=== PATIENT | male | born 1955 | race Caucasian/White ===

== ENCOUNTER 2018-03-19 00:09 | Inpatient (IN) | payer BC ==
[2018-03-19 00:34] LABS: #Basophils 0.1 thou/uL (0.0-0.2); #Eosinphils 0.2 thou/uL (0.0-0.7); #Lymphocytes 4.1 thou/uL (1.20-3.40); #Monocytes 0.7 thou/uL (0.11-0.59); #Neutrophils 4.1 thou/uL (1.40-6.50); %Basophils 0.8 % (0.0-1.0); %Eosinophils 2.3 % (0.0-10.0); %Lymphocytes 45.1 % (21.0-51.0); %Monocytes 7.3 % (0.0-10.0); %Neutrophils 44.4 % (42.0-75.0); Hemoglobin 14.2 g/dL (14.0-18.0); Mean Corpuscular HGB CONC 33.8 g/dL (32.0-36.0); Mean Corpuscular Hemoglobin 29.5 pg (27.0-31.0); Mean Corpuscular Volume 87.3 fL (78.0-98.0); Mean Platelet Volume 6.8 fL (7.4-10.4); Platelet Count 226 thou/uL (130-400); RBC Distribution Width 12.2 % (11.5-14.5); Red Blood Cell (RBC) Count 4.82 mill/uL (4.70-6.10); White Blood Cell (WBC) Count 9.2 thou/uL (4.8-10.8)
[2018-03-19] MEDS ORDERED: Fentanyl 100 MCG/2 ML VIAL ONE (00:35)
[2018-03-19] MEDS ORDERED: Midazolam HCl 2 mg/2 ml Vial ONE (00:35)
[2018-03-19 00:43] LABS: PTT 29.6 SEC (22.9-36.1)
--- NOTE | 2018-03-19 00:48 | CON ---
DATE OF CONSULTATION: 03/19/2018 CHIEF COMPLAINT: Acute myocardial infarction. HISTORY OF PRESENT ILLNESS: Mr. Bejarano is a very pleasant 62-year-old gentleman with a past medical h istory of acid reflux and tobacco abuse, who recently presented with acute onset of chest pain. It o ccurred at 45 minutes to an hour prior to presentation. He presented [facility]. Accord ing to the physician at [place] [facility], he was continued to have chest pain and went into VT and required synchronized cardioversion. He was placed on IV amiodarone and transferred to [facility]. He is currently having chest pressure. PAST MEDICAL HISTORY: Acid reflux, tobacco abuse. ALLERGIES: None. MEDICATIONS: None. SOCIAL HISTORY: He is currently . Positive tobacco. Positive alcohol use. REVIEW OF SYSTEMS: A 10-point review of systems is reviewed and as above, otherwise negative. PHYSICAL EXAMINATION: VITAL SIGNS: Blood pressure 110/70, pulse 80, respirations 20. GENERAL: Patient is a pleasant male/female who is in no acute distress. The patient appears his/her stated age. NEUROLOGIC: The patient is alert and oriented times 3 with no focal neurologic deficits. HEENT: Sclerae without icterus. Mouth has moist mucous membranes with normal pallor. NECK: No JVD. Carotid upstroke brisk. No bruits bilaterally. LUNGS: Clear to auscultation with unlabored respirations. BACK: No scoliosis or kyphosis. CARDIAC: Regular rate and rhythm with normal S1 and S2. No S3 or S4 noted. No significant rubs, mu rmurs, thrills, or gallops noted throughout the precordium. PMI is not displaced. There is no brianna ternal heave. ABDOMEN: Soft, nontender, nondistended. No peritoneal signs present. No hepatosplenomegaly. No ab normal striae. EXTREMITIES: 2+ femoral and 2+ dorsalis pedis pulses. No cyanosis, clubbing, or edema. SKIN: No gross abnormalities. PERTINENT LABORATORY DATA: Pending. EKG shows normal sinus rhythm, ST segment elevation noted infer iorly. IMPRESSION: Acute myocardial infarction. RECOMMENDATIONS: At this point, I recommend urgent coronary angiography plus PCI. I discussed the p rocedure in full detail with the patient. The risks of the procedure were also discussed. The risks of the procedure include but are not limited to the following: , stroke, MD, need for emergenc y surgery, loss of limb, bleeding, and infection, as well as a reaction to the dye causing kidney maxx lure and needing long-term dialysis. I also discussed the risks of PCI to include all of the above i ncluding coronary dissection and perforation in addition to acute stent thrombosis and restenosis. A ll questions about the procedure were answered. Given the above, the patient agreed to proceed with coronary angiography and possible PCI. I did discuss this individually with Adriana Darci as well as . Both agreed to proceed with drug-co ated stent placement if needed. Further recommendation pending the above.
[2018-03-19 00:49] LABS: ALT (SGPT) 39 U/L (8-55); AST (SGOT) 51 U/L (5-34); Albumin 4.2 g/dL (3.4-4.8); Alkaline Phosphatase 37 U/L (40-150); Anion Gap 16 mmol/L (10-20); BUN (Urea Nitrogen) 13 mg/dL (8.4-25.7); Bilirubin, Total 0.5 mg/dL (0.2-1.2); Calc. Creatinine Clearance 0 mL/min (70-130); Carbon Dioxide 20 mmol/L (23-31); Chloride 107 mmol/L (98-107); Estimated GFR-MDRD 76; Globulin 2.7 g/dL (2.4-3.5); Glucose 134 mg/dL (80-115); Potassium 3.2 mmol/L (3.5-5.1); Protein, Total 6.9 g/dL (5.8-8.1); Sodium 140 mmol/L (136-145)
[2018-03-19 00:54] LABS: CKMB 3.7 ng/mL (0-6.6); Troponin I 0.019 ng/mL (< 0.028)
[2018-03-19] MEDS: Amiodarone HCl 450 MG, Admixture Fee 1 EACH in Dextrose 5% in Water 250 ML IVPB SCH ×2 (01:20→06:20)
[2018-03-19] MEDS ORDERED: Acetaminophen/Codeine 30-300mg Tablet PO PRN (01:29)
[2018-03-19] MEDS ORDERED: Morphine 2 MG/ML SYRINGE SLOW IVP PRN (01:29)
[2018-03-19] MEDS ORDERED: Mag-Al 1200 mg/1200 mg/30 ML UDCUP PO PRN (01:29)
[2018-03-19] MEDS ORDERED: traMADol HCl 50 MG TAB PO PRN (01:29)
[2018-03-19] MEDS ORDERED: Nitroglycerin 0.4 MG TAB (25 Tab Bottle) SL PRN (01:29)
[2018-03-19] MEDS ORDERED: Sodium Chloride 0.9% 1,000 ML IV SCH (01:30)
[2018-03-19 02:09] VITALS: BMI 25.4
[2018-03-19 03:03] LABS: CKMB 98.9 ng/mL (0-6.6)
[2018-03-19 03:08] LABS: Troponin I 15.882 ng/mL (< 0.028)
--- NOTE | 2018-03-19 04:29 | OP ---
The patient was brought urgently for coronary angiography. He was consented prior to the procedure. There was significant stenosis present in the LAD and circumflex artery. The culprit lesion appeare d to be the right coronary artery. He had complete occlusion of the RPL branch. There are multiple branches are present. The wire was initially placed and balloon passed. The wire was in a smaller o f the two vessels in the RPL. We decided to retract the wire (balloon was not inflated initially). The balloon would not track into the lower vessel. The loose wire would not track in either vessel. It was decided to proceed with a Whisper wire. There was a Whisper wire passed easily into the supe rior branch (smaller branch). A balloon was then performed successfully. It was decided to proceed with a second wire into the inferior branch with a Luge wire. After initial balloon inflations 2.25 x 24 mm Synergy stent was placed successfully. We will try to avoid the aneurysmal segment. T here was concern for a vessel mismatch. The stent appeared to be placed appropriately. There was TI OR 3 flow present at the end of the study. ST segments resolved.
[2018-03-19 08:56] LABS: CKMB 232.8 ng/mL (0-6.6)
[2018-03-19 09:11] LABS: Troponin I 62.626 ng/mL (< 0.028)
--- NOTE | 2018-03-19 09:31 | RAD ---
SINGLE VIEW OF THE CHEST: Comparison: None. History: Status post interventional cardiology. Cardiac arrhythmia. FINDINGS: Single view of the chest shows a normal sized cardiomediastinal silhouette. There is no evidence of c onsolidation, mass, or pleural effusion. The bones are unremarkable. IMPRESSION: No evidence of acute cardiopulmonary disease. POS: C
[2018-03-19] MEDS ORDERED: Iopamidol 370 76% 100 ML VIAL ONE (10:14)
[2018-03-19] MEDS ORDERED: Iopamidol 370 76% 50 ML VIAL FS ONE (10:14)
[2018-03-19] MEDS: TICAGRELOR 90 MG TABLET PO SCH ×2 (11:13→20:52)
[2018-03-19] MEDS: Potassium Chloride 20 MEQ TAB PO SCH ×2 (12:32→17:59)
--- NOTE | 2018-03-19 12:40 | CON ---
DATE OF CONSULTATION: 03/19/2018 SERVICE: Pulmonary Medicine REASON FOR CONSULTATION: ICU patient. HISTORY OF PRESENT ILLNESS: The patient is a very pleasant 62-year-old white male with past medical history significant for stable angina going on for 2 years. He then was leaving a movie. On leaving, he has had the same onset of chest discomfort and arm discomfort. It typically goes away with rest. He rested, but the pain continued to get worse. As such, he took some aspirin and was brought to the emergency department by family members were he was identified as having an ST elevation AR. He was transferred our way. He went for cardiac catheterization. During the procedure, the patient had a resolution in his chest discomfort, and bilateral arm discomfort as soon as the vessel was opened up. He then recovered in the ICU. Overnight, he has had multiple episodes of nonsustained ventricular tachycardia. Of note, he did develop a sustained V-tach in the previous emergency department. He required electrical defibrillation. PAST MEDICAL HISTORY: 1. Gastroesophageal reflux disease. 2. Tobacco abuse. 3. Coronary artery disease. PAST SURGICAL HISTORY: Percutaneous coronary intervention with stent placement x1. ALLERGIES: No known drug allergies. MEDICATIONS: A list of his inpatient medications were reviewed. No updates were made at this time. SOCIAL HISTORY: He is . He has a greater than [id number] history of smoking. He continues to smoke roughly half pack to a pack on a daily basis. He has occasional alcohol use. He denies any illicit drugs and has no exposure to chemicals, asbestos or tuberculosis. FAMILY HISTORY: Noncontributory. REVIEW OF SYSTEMS: General, head, ears, eyes, nose, throat, cardiovascular, respiratory, GI, , musculoskeletal, neurologic and skin is negative except as mentioned in the H&P. PHYSICAL EXAMINATION: VITAL SIGNS: Afebrile, pulse 70, blood pressure 129/83, respirations 13, saturation 100% on room air. GENERAL: The patient is awake, alert, in no apparent distress. LUNGS: Excellent air entry. There is no prolonged expiratory phase or wheezing appreciated. HEART: Normal rate, regular. ABDOMEN: Soft, nontender, nondistended. Bowel sounds are positive. MUSCULOSKELETAL: No cyanosis or clubbing. There is no pitting in the bilateral lower extremities. NEUROLOGIC: Grossly nonfocal. LABORATORY DATA: WBC 9.2, hemoglobin 14.2, platelets 226,000. INR 1.0. Troponin 62. Otherwise, basic metabolic profile is essentially unremarkable. Liver function studies are also unremarkable except for an AST minimally elevated at 51. IMAGING: Chest x-ray demonstrates no acute cardiopulmonary abnormality. ASSESSMENT: 1. ST elevation myocardial infarction, status post PCI with MAO to the right coronary artery. 2. Sustained ventricular tachycardia, status post cardioversion without need for chest compressions. 3. Obstructive sleep apnea, suspected. DISCUSSION AND PLAN: The patient will remain in the ICU until cleared for transition to the floor by Cardiology. He is currently on an amiodarone drip. Other supportive measures will be continued. I will replace the patient's potassium. Otherwise, I will make an attempt at mobilizing him through the day and push diet if he is okay with it. Ultimately, definitive therapy for his other severe coronary artery disease will likely be indicated. When the patient leaves the hospital in 4-6 weeks, we will bring him back to clinic and set him up for a polysomnogram. 70 minutes have been devoted to this patient in various activities. I personally reviewed all imaging studies and laboratory data noted within this document. For fifty percent of this time, I was interacting with the patient at the bedside or coordinating care with the care team. For the remainder of the time I was immediately available to the patient in the hospital unit. LANCE
--- NOTE | 2018-03-19 13:14 | EKG ---
Test Reason : POST STENT Blood Pressure : / mmHG Vent. Rate : 073 BPM Atrial Rate : 073 BPM P-R Int : 172 ms QRS Dur : 080 ms QT Int : 446 ms P-R-T Axes : 060 -03 042 degrees QTc Int : 491 ms Normal sinus rhythm Inferior infarct , age undetermined Abnormal ECG No previous ECGs available Confirmed by DR. Jackson QUINTANILLA MD ([id number]) on 03/19/2018 1:14:35 PM Referred By: RAEANN Confirmed By:DR. Jackson QUINTANILLA MD
[2018-03-19] MEDS: Atorvastatin Calcium 40 MG TAB PO SCH (20:52)
[2018-03-20 05:01] LABS: #Basophils 0.1 thou/uL (0.0-0.2); #Eosinphils 0.1 thou/uL (0.0-0.7); #Lymphocytes 2.1 thou/uL (1.20-3.40); #Monocytes 0.6 thou/uL (0.11-0.59); #Neutrophils 5.1 thou/uL (1.40-6.50); %Basophils 0.7 % (0.0-1.0); %Eosinophils 1.7 % (0.0-10.0); %Lymphocytes 26.5 % (21.0-51.0); %Monocytes 7.2 % (0.0-10.0); Hemoglobin 14.2 g/dL (14.0-18.0); Mean Corpuscular HGB CONC 33.6 g/dL (32.0-36.0); Mean Corpuscular Hemoglobin 29.2 pg (27.0-31.0); Mean Corpuscular Volume 86.8 fL (78.0-98.0); Platelet Count 205 thou/uL (130-400); RBC Distribution Width 12.3 % (11.5-14.5); Red Blood Cell (RBC) Count 4.88 mill/uL (4.70-6.10); White Blood Cell (WBC) Count 7.9 thou/uL (4.8-10.8)
[2018-03-20 05:20] LABS: ALT (SGPT) 54 U/L (8-55); AST (SGOT) 138 U/L (5-34); Albumin 3.7 g/dL (3.4-4.8); Alkaline Phosphatase 36 U/L (40-150); Anion Gap 12 mmol/L (10-20); BUN (Urea Nitrogen) 12 mg/dL (8.4-25.7); Bilirubin, Total 0.9 mg/dL (0.2-1.2); Calc. Creatinine Clearance 100 mL/min (70-130); Calcium 8.7 mg/dL (7.8-10.44); Carbon Dioxide 19 mmol/L (23-31); Cardiac Risk 6.9 (Less than 4.5); Chloride 109 mmol/L (98-107); Cholesterol 193 mg/dl (< 200 Desired); Estimated GFR-MDRD 87; Globulin 2.7 g/dL (2.4-3.5); Glucose 111 mg/dL (80-115); HDL Cholesterol 28 mg/dL (>60 Neg Risk); LDL Cholesterol, Calculated 123 mg/dL; Magnesium 2.4 mg/dL (1.6-2.6); Phosphorus 3.3 mg/dL (2.3-4.7); Potassium 4.3 mmol/L (3.5-5.1); Protein, Total 6.4 g/dL (5.8-8.1); Sodium 136 mmol/L (136-145); Triglycerides 209 mg/dL (Less than 150)
[2018-03-20] MEDS: Losartan 25 MG TAB PO SCH (09:35)
[2018-03-20] MEDS: TICAGRELOR 90 MG TABLET PO SCH ×2 (09:36→20:16)
--- NOTE | 2018-03-20 12:26 | PRG ---
DATE OF SERVICE: 03/20/2018 SERVICE: Pulmonary Medicine. INTERVAL HISTORY: The patient is doing really well from a respiratory standpoint. He is breathing comfortably. Denies any current chest pain, nausea, vomiting, fevers, or chills. He had not had any significant tachyarrhythmias. Otherwise , he really feels like he is back to normal. PHYSICAL EXAMINATION: VITAL SIGNS: Afebrile, pulse 83, blood pressure 125/80, respirations 20, saturation 98% on room air. GENERAL: The patient is awake and alert, in no apparent distress. LUNGS: Excellent air entry. There is no prolonged expiratory phase, wheezing, rhonchi, or crackles. HEART: Normal rate. Regular. ABDOMEN: Soft, nontender, nondistended. Bowel sounds are positive. MUSCULOSKELETAL: No cyanosis or clubbing. There is no pitting in the bilateral lower extremities. NEUROLOGIC: Grossly nonfocal. LABORATORY DATA: CBC is completely unremarkable. AST is gently uptrending, ALT is also gently uptrending. Liver function study and basic metabolic profile are otherwise unremarkable. Anion gap is downtrending. ASSESSMENT: 1. ST-elevation myocardial infarction, status post percutaneous coronary intervention with drug-eluting stent to the right coronary artery. 2. Sustained ventricular tachycardia without recurrence since percutaneous coronary intervention. 3. Obstructive sleep apnea, suspected. DISCUSSION AND PLAN: The patient could be transitioned out of the ICU to the telemetry unit. Pulmonary/Critical Care will continue to follow along while the patient remains in this location. When he arrives on the floor, I will sign off. We will have him return to clinic in 4 to 6 weeks in the outpatient setting to investigate his sleep apnea. Job ID: [id number] [facility]
--- NOTE | 2018-03-20 13:37 | PDOC.CTH ---
Cardiology Progress Note - Subjective Doing well. NO complaints. 5 B NSVT, slow present within 24 hours of [place] - Objective Vital Signs Temp Pulse Ox 03/20/18 08:00 100 03/20/18 07:00 98.0 F 03/20/18 04:00 97.8 F Weight 182 lb 1.629 oz 03/19/18 03/20/18 03/21/18 06:59 06:59 06:59 Intake Total 382 1710 340 Output Total 350 3050 0 Balance 32 -1340 340 - Physical Examination General/Neuro: alert & oriented x3, NAD Neck: carotid US brisk, no JVD present Lungs: CTA, unlabored respirations Heart: PMI normal, RRR Abdomen: no HSM, NT/ND, soft Extremities: + femoral B - Labs Result Diagrams: 03/20/18 04:35 03/20/18 04:35 Troponin/CKMB CK-MB (CK-2) 232.8 ng/mL (0-6.6) H* 03/19/18 08:15 Troponin I 62.626 ng/mL (< 0.028) H* 03/19/18 08:15 - Assessment/Plan AMI, inferior Severe CAD HTN Add coreg on ASA, brillinta and losartan Discussed proceeding with intervention to the circ and LAD. Concerned about jailing a diagonal branch. Given stable lesions and no symptoms prior to event , pt has opted for medical therapy and discuss intervention as outpatient. Likely home in am if no changes overnight.
--- NOTE | 2018-03-20 20:09 | EKG ---
Test Reason : Blood Pressure : / mmHG Vent. Rate : 079 BPM Atrial Rate : 079 BPM P-R Int : 180 ms QRS Dur : 080 ms QT Int : 406 ms P-R-T Axes : 064 -05 009 degrees QTc Int : 465 ms Normal sinus rhythm Inferior infarct (cited on or before 19-MAR-2018) Abnormal ECG When compared with ECG of 19-MAR-2018 07:19, Nonspecific T wave abnormality now evident in Lateral leads Confirmed by DWIGHT LI, SAdriana ([id number]) on 03/20/2018 8:08:47 PM Referred By: RAEANN Confirmed By:DR. Jackson QUINTANILLA MD
[2018-03-20] MEDS: Atorvastatin Calcium 40 MG TAB PO SCH (20:16)
[2018-03-20] MEDS: Carvedilol 6.25 MG TAB PO SCH (20:16)
[2018-03-21] MEDS ORDERED: Losartan 25 MG TAB PO SCH (09:00)
[2018-03-21] MEDS: Carvedilol 6.25 MG TAB PO SCH (10:26)
[2018-03-21] MEDS: TICAGRELOR 90 MG TABLET PO SCH (10:30)
[2018-03-21] MEDS: Losartan 25 MG TAB PO SCH (10:40)
[2018-03-21 11:28] LABS: CKMB 7.5 ng/mL (0-6.6); Critical Call CKMB RESULT DECREASING; Critical Call Chem Troponin I RESULT DECREASING; Troponin I 13.687 ng/mL (< 0.028)
--- NOTE | 2018-03-21 13:19 | PDOC.CTH ---
Cardiology Progress Note - Subjective No complaints today. BP dropped to the 80s systolic overnight. Asymptomatic. - Objective Vital Signs Temp BP 03/21/18 10:26 113/81 03/21/18 04:00 98.4 F Weight 182 lb 1.629 oz 03/20/18 03/21/18 03/22/18 06:59 06:59 06:59 Intake Total 1710 1870 Output Total 3050 1950 Balance -1340 -80 - Physical Examination General/Neuro: alert & oriented x3 Neck: carotid US brisk Lungs: CTA Heart: RRR Abdomen: NT/ND Extremities: other: (no edema) - Telemetry Telemetry Rhythm: SR - Labs Result Diagrams: 03/20/18 04:35 03/20/18 04:35 Troponin/CKMB CK-MB (CK-2) 7.5 ng/mL (0-6.6) H* 03/21/18 10:34 Troponin I 13.687 ng/mL (< 0.028) H* 03/21/18 10:34 - Assessment/Plan 1. s/p acute inferior NE 2. CAD s/p PCI-PDA 3. NSVT 4. Hypotension Transfer to tele. Continue monitoring BP. Probable discharge in AM.
[2018-03-22 08:04] VITALS: BP 106/65; TEMP 98.5
[2018-03-22] MEDS ORDERED: TICAGRELOR 90 MG TABLET PO SCH (09:00)
[2018-03-22] MEDS ORDERED: Losartan 25 MG TAB PO SCH (09:00)
--- NOTE | 2018-03-22 10:35 | PRG ---
DATE OF SERVICE: 03/21/2018 SERVICE: Pulmonary Medicine. INTERVAL HISTORY: The patient is doing absolutely outstanding from respiratory standpoint. He denies any chest discomfort or arm discomfort. I had a chance to talk to him today. Apparently, he has fairly significant snoring. His partner witnessed him holding his breath while sleeping. He has daytime sleepiness. His [place] sleepiness index is actually 12. He occasionally wakes up with a morning headache and frequently gets up in night in order to urinate. He has been told that he needs to have sleep apnea investigated. After telling him that this could contribute to heart disease, brain disease, and kidney disease, he is interested in pursuing a diagnostic polysomnogram. Otherwise, there has been no interval change to his condition. He is really doing quite well and has no discomforts. OBJECTIVE: VITAL SIGNS: Afebrile. Pulse 70, blood pressure 98/68, respirations 14, and saturation 100% on room air. GENERAL: The patient is awake and alert, in no apparent distress. LUNGS: Excellent air entry. There is no prolonged expiratory phase or wheezing present. HEART: Normal rate and regular. ABDOMEN: Soft, nontender, and nondistended. Bowel sounds are positive. MUSCULOSKELETAL: No cyanosis or clubbing. There is no pitting in the bilateral lower extremities. NEUROLOGIC: Nonfocal. LABORATORY DATA: Troponin 13.68 and beautifully downtrending. IMAGING: Echocardiogram demonstrates preserved ejection fraction with 1/3 diastolic dysfunction. ASSESSMENT: 1. ST-elevation myocardial infarction, status post percutaneous coronary intervention to the right coronary artery. 2. Sustained ventricular tachycardia without recurrence since stent placement. 3. Obstructive sleep apnea, suspected. 4. Chronic diastolic heart failure with preserved ejection fraction following myocardial infarction. DISCUSSION AND PLAN: At this point, the patient has no further requirements for inpatient pulmonary critical care opinion, so I will sign off. I will arrange for him to have an outpatient polysomnogram, and I have him return to the clinic after this can be performed, so we can get him initiated on therapy if appropriate. Please call with any additional questions or concerns moving forward, but from purely respiratory standpoint, he is stable for transition out of the hospital. Job ID: [id number]
[2018-03-22] MEDS ORDERED: Carvedilol 3.125 MG TAB PO SCH (17:00)
--- NOTE | 2018-03-23 19:32 | EKG ---
Test Reason : CHEST PAIN Blood Pressure : / mmHG Vent. Rate : 091 BPM Atrial Rate : 091 BPM P-R Int : 174 ms QRS Dur : 100 ms QT Int : 396 ms P-R-T Axes : 050 040 067 degrees QTc Int : 487 ms Sinus rhythm with Fusion complexes Possible Left atrial enlargement ST elevation consider inferolateral injury or acute infarct Prolonged QT * ACUTE OR * Inferior STEMI Consider right ventricular involvement in acute inferior infarct Abnormal ECG Confirmed by FLORY GONZALEZ DO ([id number]), commissioning editor WARREN EPSTEIN ([id number]) on 03/23/2018 7:31:51 PM Referred By: Confirmed By:FLORY GONZALEZ DO
== END 2018-03-22 10:06 | disposition home or self-care (01) | DRG 247 ==
LOC: ERS 00:09 → SDC 00:34 → CCU 00:36 → 2SE 03-21 18:22
PROVIDERS: ADMIT Internal Medicine Cardiovascular Disease; ATTEND Internal Medicine Cardiovascular Disease
PROC: 027034Z Dilation of Coronary Artery, One Artery with Drug-eluting Intraluminal Device, Percutaneous Approach (ICD-10-PCS; principal; 2018-03-19)
PROC: 4A023N7 Measurement of Cardiac Sampling and Pressure, Left Heart, Percutaneous Approach (ICD-10-PCS; 2018-03-19)
PROC: B2111ZZ Fluoroscopy of Multiple Coronary Arteries using Low Osmolar Contrast (ICD-10-PCS; 2018-03-19)
PROC: B2151ZZ Fluoroscopy of Left Heart using Low Osmolar Contrast (ICD-10-PCS; 2018-03-19)
DX: I21.3 ST elevation (STEMI) myocardial infarction of unspecified site (principal); I47.1 Supraventricular tachycardia; I50.32 Chronic diastolic (congestive) heart failure; G47.33 Obstructive sleep apnea (adult) (pediatric); I25.10 Atherosclerotic heart disease of native coronary artery without angina pectoris; I11.0 Hypertensive heart disease with heart failure; K21.9 Gastro-esophageal reflux disease without esophagitis; F17.210 Nicotine dependence, cigarettes, uncomplicated; Z79.899 Other long term (current) drug therapy
CPT/HCPCS: 36415; 71045; 76942; 80053; 80061; 82553; 83735; 84100; 84484; 85025; 85347; 85610; 85730; 92941; 93005; 93010; 93306; 93458; 93798; 99152; 99153; 99285; C1725; C1769; C1874; C9606; J0282; J2250; J3010; J7070

== ENCOUNTER 2018-06-11 20:30 | Outpatient (CLI) | payer BC | END 2018-06-11 20:31 | disposition home or self-care (01) | LOC: SLEEPLAB 20:30 | PROVIDERS: ATTEND Internal Medicine | DX: G47.33 Obstructive sleep apnea (adult) (pediatric) (principal); I10 Essential (primary) hypertension; I21.9 Acute myocardial infarction, unspecified; R35.1 Nocturia | CPT/HCPCS: 95810 ==

== ENCOUNTER 2018-08-26 23:40 | Observation (INO) | payer BC ==
[2018-08-27 00:01] LABS: #Eosinphils 0.2 thou/uL (0.0-0.7); #Lymphocytes 3.9 thou/uL (1.20-3.40); #Monocytes 0.8 thou/uL (0.11-0.59); %Basophils 0.2 % (0.0-1.0); %Eosinophils 2.3 % (0.0-10.0); %Lymphocytes 44.2 % (21.0-51.0); %Monocytes 8.7 % (0.0-10.0); %Neutrophils 44.6 % (42.0-75.0); Hemoglobin 13.5 g/dL (14.0-18.0); Mean Corpuscular HGB CONC 32.7 g/dL (32.0-36.0); Mean Corpuscular Hemoglobin 28.9 pg (27.0-31.0); Mean Corpuscular Volume 88.2 fL (78.0-98.0); Mean Platelet Volume 7.2 fL (7.4-10.4); Platelet Count 263 thou/uL (130-400); RBC Distribution Width 12.6 % (11.5-14.5); Red Blood Cell (RBC) Count 4.68 mill/uL (4.70-6.10); White Blood Cell (WBC) Count 8.9 thou/uL (4.8-10.8)
[2018-08-27] MEDS ORDERED: Nitroglycerin 2% Ointment 1 INCH/1 GM Packet ONE (00:22)
[2018-08-27] MEDS ORDERED: Aspirin Chewable 81 MG TAB ONE (00:22)
[2018-08-27] MEDS ORDERED: Labetalol HCl 100 MG/20 ML VIAL ONE (00:22)
[2018-08-27] MEDS ORDERED: Magnesium 2 GM/50 ML BAG (IN WATER) ONE (00:22)
[2018-08-27 00:24] LABS: ALT (SGPT) 22 U/L (8-55); AST (SGOT) 27 U/L (5-34); Albumin 4.9 g/dL (3.4-4.8); Alkaline Phosphatase 46 U/L (40-150); Anion Gap 17 mmol/L (10-20); BUN (Urea Nitrogen) 11 mg/dL (8.4-25.7); Bilirubin, Total 0.5 mg/dL (0.2-1.2); Calc. Creatinine Clearance 0 mL/min (70-130); Calcium 10.1 mg/dL (7.8-10.44); Carbon Dioxide 22 mmol/L (23-31); Chloride 105 mmol/L (98-107); Estimated GFR-MDRD 70; Globulin 2.9 g/dL (2.4-3.5); Glucose 98 mg/dL (80-115); Potassium 3.9 mmol/L (3.5-5.1); Protein, Total 7.8 g/dL (5.8-8.1); Sodium 140 mmol/L (136-145)
[2018-08-27 01:19] LABS: Bilirubin Negative (Negative); Blood, Urine Negative (Negative); Clarity CLEAR (Clear); Glucose, Urine (Dipstick) Negative (Negative); Leukocyte Negative (Negative); Nitrite Negative (Negative); Protein, Urine (Dipstick) Negative (Neg-Trace); Specific Gravity, Urine 1.006 (1.002-1.036); Urobilinogen 0.2 mg/dL (0.2-1.0)
--- NOTE | 2018-08-27 02:53 | HP ---
PRIMARY CARE PROVIDER: Bryn Weiss MD CHIEF COMPLAINT: Chest pain. HISTORY OF PRESENT ILLNESS: Mr. Bejarano is a pleasant 63-year-old gentleman, who was seen at [facility] on August 27, 2018. On March 19, 2018, he had cardiac catheterization at which time he was found to have severe multivessel disease. He had successful stent placement to RPL with a drug-eluting stent. Staged procedure to the LAD, circumflex artery. He reports that he was doing well until 11:00 p.m. yesterday. At that time, he noticed pain in the right side of his neck. He describes it as "sore muscle and type", 3/10 to 4/10, no known aggravating or relieving factors. He initially came to the emergency room because of neck pain. While in the emergency room, the neck pain radiated to the right side of his chest. When I saw him, he reported that the pain has resolved. He denies any shortness of breath, diaphoresis, lightheadedness, nausea, or vomiting. REVIEW OF SYSTEMS: All other systems reviewed and found to be negative. PAST MEDICAL HISTORY: Gastroesophageal reflux disease and coronary artery disease. PAST SURGICAL HISTORY: Right shoulder surgery and PCI with stent. SOCIAL HISTORY: The patient drinks 2 beers every night. He denies recreational drug use or tobacco use. FAMILY HISTORY: Congestive heart failure in his mother. ALLERGIES: NO KNOWN DRUG ALLERGIES. CURRENT MEDICATIONS: 1. Aspirin 81 mg daily. 2. [place]-3 one tablet 2 times a day. 3. Vitamin D3 of 1000 units 2 times a day. 4. FiberCon 625 mg two times a day. 5. Flonase 2 sprays intranasally daily. 6. Ranitidine 300 mg daily. 7. Atorvastatin 40 mg daily. 8. Plavix 75 mg daily. 9. Coreg 3.125 mg 2 times a day. PHYSICAL EXAMINATION: GENERAL: On examination, Mr. Bejarano is awake and alert, not in acute distress. VITAL SIGNS: Blood pressure is 108/63, pulse 71, respiratory rate 15, and oxygen saturation 96% on room air. He is afebrile. EYES: No scleral icterus. No conjunctival pallor. ENT: Moist mucosal membranes. No oropharyngeal erythema or exudates. NECK: Supple, nontender, trachea is midline. RESPIRATORY: Accessory muscles of breathing are not active. Chest wall movements are symmetric bilaterally. LUNGS: Clear to auscultation without wheeze, rhonchi, or crepitations. CARDIOVASCULAR: S1 and S2 are heard, regular. Peripheral pulses palpable. No carotid bruit. No pericardial rub. ABDOMEN: Soft, nontender. Bowel sounds heard. No hepatomegaly. No splenomegaly. NEUROLOGIC: Cranial nerves 2 through 12 intact, deep tendon reflexes 2+. MUSCULOSKELETAL: Power is 5/5 in all 4 extremities. SKIN: No rashes or subcutaneous nodules. LYMPHATIC: No cervical lymphadenopathy. PSYCHIATRIC: Normal mood, normal affect. The patient is oriented to person, place, and time. LABORATORY DATA: Mr. Bejarano's labs and investigations were reviewed. I reviewed his electrocardiogram, which shows normal sinus rhythm. No ST changes to suggest an acute coronary syndrome. I reviewed his chest x-ray, which does not show any pulmonary infiltrates. White count, normocytic anemia with hemoglobin 13.5, normal platelet count, unremarkable comprehensive metabolic profile and normal first troponin I. Urinalysis is negative. ASSESSMENT AND PLAN: Mr. Bejarano is a pleasant 63-year-old gentleman, who was seen at [facility] on August 27, 2018. His problem list includes: 1. Chest pain: Mr. Bejarano is presenting with chest pain, which is very atypical for cardiac etiology. However, given his cardiac history, he will be admitted to the hospital on observation status for telemetry monitoring and to recheck his troponin. Cardiology Service has been consulted by emergency room physician for opinion and help with management. We will continue aspirin and Plavix while he is in the hospital. 2. Hypertension: Continue his antihypertensives, monitor vital signs and titrate antihypertensives as needed. 3. Gastroesophageal reflux disease: Appears to be stable, continue ranitidine. 4. Dyslipidemia: Continue atorvastatin. Many thanks for allowing me to participate in your patient's care. Please feel free to contact me with any questions or concerns. LEVEL OF RISK: High. LEVEL OF COMPLEXITY: High. Job ID: [id number]
[2018-08-27 02:56] VITALS: BMI 27.1
[2018-08-27 03:44] LABS: Troponin I 0.013 ng/mL (< 0.028)
[2018-08-27 06:45] LABS: Troponin I 0.019 ng/mL (< 0.028)
[2018-08-27] MEDS ORDERED: Labetalol HCl 100 MG/20 ML VIAL SLOW IVP PRN (07:16)
--- NOTE | 2018-08-27 08:14 | RAD ---
PORTABLE CHEST: History: Chest pain. Comparison: 03-19-18 FINDINGS: Heart size and mediastinum within normal limits. The lungs are clear of infiltrates. No significant b mouna findings. IMPRESSION: No active intrathoracic disease. POS: [facility]
[2018-08-27] MEDS ORDERED: Clopidogrel Bisulfate 75 MG TAB PO SCH (16:00)
[2018-08-27] MEDS ORDERED: Losartan 25 MG TAB PO SCH (16:00)
[2018-08-27 16:20] VITALS: BP 156/72; TEMP 97.4
[2018-08-27] MEDS ORDERED: Carvedilol 3.125 MG TAB PO SCH (17:00)
--- NOTE | 2018-08-27 18:05 | CON ---
DATE OF CONSULTATION: 08/27/2018 REASON FOR CONSULTATION: Atypical chest pain and hypertensive urgency. HISTORY OF PRESENT ILLNESS: Mr. Bejarano is a very pleasant 63-year-old gentleman, who was seen and evaluated in the past. He presented with acute MA in February. He had complete occlusion of an RPL branch. He had severe stenosis of the circumflex artery and LAD. After discussing risks and benefits of proceeding with stent placement, decided to opt with medical therapy. Most recently, he states he had a very laborious job. He then developed neck discomfort. He states he had associated blood pressure 180/110. This is unusual for him. He proceeded to the emergency room with the above. The pain was much different than his previous symptoms. PAST MEDICAL HISTORY: As above. HOME MEDICATIONS: Include, 1. Flonase. 2. FiberCon. 3. Plavix. 4. [place]-3 fatty acids. 5. Vitamin D3. 6. Coreg. 7. Lipitor. 8. Aspirin. 9. Cozaar. PHYSICAL EXAMINATION: GENERAL: Patient is a pleasant male, who is in no acute distress. The patient appears their stated age. VITAL SIGNS: Blood pressure 156/72, pulse 65, temperature 97.4. NEUROLOGIC: The patient is alert and oriented x3 with no focal neurologic deficits. HEENT: Sclerae without icterus. Mouth has moist mucous membranes with normal pallor. NECK: No JVD. Carotid upstroke brisk. No bruits bilaterally. LUNGS: Clear to auscultation with unlabored respirations. BACK: No scoliosis or kyphosis. CARDIAC: Regular rate and rhythm with normal S1 and S2. No S3 or S4 noted. No significant rubs, murmurs, thrills, or gallops noted throughout the precordium. PMI is not displaced. There is no parasternal heave. ABDOMEN: Soft, nontender, nondistended. No peritoneal signs present. No hepatosplenomegaly. No abnormal striae. EXTREMITIES: 2+ femoral and 2+ dorsalis pedis pulses. No cyanosis, clubbing, or edema. SKIN: No gross abnormalities. PERTINENT LABORATORY DATA: CK-troponin negative. IMPRESSION: 1. Hypertensive urgency. 2. Atypical chest pain. RECOMMENDATIONS: I discussed proceeding with coronary angiography with Mr. Bejarano. I also discussed proceeding with medical therapy. I discussed risks and benefits of both options. He has opted with medical therapy. He is not interested in proceeding with a stent placement. We will then be aggressive with continued blood pressure management. I would recommend he carry increasing carvedilol at 6.25 b.i.d. in addition to increased losartan 50 mg q.a.m. Plan is to follow Mr. Bejarano in the next 1 to 2 weeks. Job ID: [id number]
[2018-08-27] MEDS ORDERED: Atorvastatin Calcium 40 MG TAB PO SCH (21:00)
--- NOTE | 2018-08-28 05:15 | SS ---
DATE OF ADMISSION: 08/27/2018 DATE OF DISCHARGE: 08/27/2018 PRIMARY CARE PHYSICIAN: Dr. Weiss. CONSULTANTS: Dr. Velasquez. DISCHARGE DIAGNOSES: 1. Chest pain, atypical chest pain. 2. Hypertension. 3. Gastroesophageal reflux disease. 4. Dyslipidemia. HOSPITAL COURSE: Mr. Bejarano is a 63-year-old male, who presented to the emergency room with complaints of high chest pain, anterior neck pain, and hypertension. The patient reports he had a stent placed 3 months ago. 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 He denied any dizziness, lightheadedness. He is taking Plavix and aspirin after his stent was placed. Due to his recent cardiac history, the patient was admitted to the observation unit for further management and cardiac consultation. Dr. Velasquez was consulted and saw the patient, and stated that he could go home from a cardiac standpoint as long as his blood pressure was controlled. The last blood pressure checked while the patient was updated on cardiology plan was 157/60. The patient has not had his morning blood pressure medications. The patient planned to discharge home with followup with primary care and Cardiology. REVIEW OF SYSTEMS: The patient was examined prior to discharge. He denied any chest pain, shortness of breath, palpitations. Does have a history of anxiety, but believes that it is currently under control. All other systems are negative unless mentioned in the hospital course. PHYSICAL EXAMINATION: VITAL SIGNS: Temperature is 97.4, pulse is 65, respirations 18, PO2 sats 97% on room air, and blood pressure 156/72. CONSTITUTIONAL: The patient appears nontoxic, is in no apparent distress. HEENT: Head, atraumatic and normocephalic. Eyes, pupils are equally round and reactive to light. Extraocular muscles are intact. ENT, mucous membranes are moist. Mouth exam is normal. NECK: Normal range of motion. Trachea is midline. Some mild tenderness in the left anterior neck. RESPIRATORY/CHEST: Breath sounds are clear. Chest movement is symmetrical. CARDIOVASCULAR: Normal heart rate and rhythm. Heart sounds are normal. ABDOMEN: Nontender. Bowel sounds are heard. BACK: Normal inspection. Normal range of motion. EXTREMITIES: Upper extremities, normal inspection and normal range of motion. Radial pulses are normal. Lower extremities, normal inspection and normal range of motion. Pedal pulses normal. NEURO: The patient is oriented to person, place, and time. Speech is normal. SKIN: Warm and dry. Normal in color. PSYCH: The patient has a normal affect. ALLERGIES: NONE. DISCHARGE MEDICATIONS: The patient's home medications were restarted on discharge: 1. Fibercon 625 mg p.o. b.i.d. 2. Vitamin D3 of 1000 mg p.o. b.i.d. 3. Plavix 75 mg p.o. daily. 4. Flonase 50 mcg each naris daily. 5. Losartan 25 mg p.o. daily. 6. [place] fish oil 1 capsule p.o. b.i.d. 7. Ranitidine 300 mg p.o. daily. 8. Aspirin 81 mg p.o. daily. 9. Lipitor 40 mg p.o. at bedtime. 10. Coreg 3.125 mg p.o. b.i.d. CONDITION: The patient's condition is stable. DISPOSITION: The patient will be discharged home. DISCHARGE INSTRUCTIONS: The patient is instructed to follow up with Dr. Weiss within the next week, follow up with Dr. Velasquez in the next 2 to 3 weeks. Job ID: [id number]
[2018-08-28] MEDS ORDERED: Aspirin Chewable 81 MG TAB PO SCH (09:00)
[2018-08-28] MEDS ORDERED: Losartan 25 MG TAB PO SCH (09:00)
== END 2018-08-27 17:03 | disposition home or self-care (01) ==
LOC: ERS 23:40 → ERHOLD 08-27 01:19 → 2SW 08-27 12:55
PROVIDERS: ADMIT Internal Medicine; ATTEND Internal Medicine
DX: R07.89 Other chest pain (principal); I16.0 Hypertensive urgency; I25.10 Atherosclerotic heart disease of native coronary artery without angina pectoris; I10 Essential (primary) hypertension; K21.9 Gastro-esophageal reflux disease without esophagitis; E78.5 Hyperlipidemia, unspecified; Z95.5 Presence of coronary angioplasty implant and graft; Z79.02 Long term (current) use of antithrombotics/antiplatelets; Z79.82 Long term (current) use of aspirin; Z79.899 Other long term (current) drug therapy
CPT/HCPCS: 36415; 71045; 80053; 81003; 83880; 84484; 85025; 93005; 96365; 96375; 99406; G0378; J3475

== ENCOUNTER 2018-10-22 20:30 | Outpatient (CLI) | payer BC | END 2018-10-22 20:31 | disposition home or self-care (01) | LOC: SLEEPLAB 20:30 | PROVIDERS: ATTEND Internal Medicine | DX: G47.33 Obstructive sleep apnea (adult) (pediatric) (principal); G47.31 Primary central sleep apnea | CPT/HCPCS: 95811 ==

== ENCOUNTER 2019-02-14 15:39 | Outpatient (CLI) | payer BC ==
--- NOTE | 2019-02-14 17:01 | MRI ---
MR OF THE LEFT SHOULDER WITHOUT CONTRAST: 02/14/19 INDICATION: Nontraumatic tear of the left rotator cuff. FINDINGS: There is a full thickness tear involving the anterior to posterior supraspinatus extending up to the conjoined tendon measuring 1 x 1.4 cm in the mediolateral and AP dimensions respectively. There is m ild tendinosis of the supraspinatus and infraspinatus. There is intertendinous delamination into the anterior infraspinatus tendon from the full thickness supraspinatus tear that extends to the musculot endinous junction. There is moderate tendinosis of the subscapularis. There is moderate tendinosis of the proximal long head of the biceps tendon. There is a split thickness tear of the long head of the biceps tendon. Biceps anchor complex appears intact. Anterior inferior glenohumeral labral ligamento us complex appears intact. There is mild AC joint osteoarthrosis. No muscular atrophy is evident. Sma ll suspected intra-articular body is seen within the biceps tendon sheath measuring approximately 4 m m. IMPRESSION: 1. Complete tear of the supraspinatus. Small partial thickness delaminating tear extending from the full thickness tear of the supraspinatus into the conjoined tendon and into the anterior aspect o f the infraspinatus tendon, back to the musculotendinous junction. 2. Partial thickness split tear of the intra-articular biceps tendon. 3. Intra-articular body within the biceps tendon sheath. 4. Mild AC joint osteoarthrosis. POS: OFF
== END 2019-02-14 15:40 | disposition home or self-care (01) ==
LOC: BICMRI 15:39
PROVIDERS: ATTEND Orthopaedic Surgery
DX: M75.122 Complete rotator cuff tear or rupture of left shoulder, not specified as traumatic (principal); M19.012 Primary osteoarthritis, left shoulder

== ENCOUNTER 2019-03-27 06:28 | Outpatient (CLI) | payer BC ==
[2019-03-27 14:10] LABS: #Eosinphils 0.3 thou/uL (0.0-0.7); #Monocytes 0.7 thou/uL (0.11-0.59); #Neutrophils 4.2 thou/uL (1.40-6.50); %Basophils 0.1 % (0.0-1.0); %Eosinophils 3.2 % (0.0-10.0); %Lymphocytes 36.5 % (21.0-51.0); %Monocytes 8.7 % (0.0-10.0); %Neutrophils 51.5 % (42.0-75.0); Hemoglobin 13.9 g/dL (14.0-18.0); Mean Corpuscular Hemoglobin 28.4 pg (27.0-31.0); Mean Corpuscular Volume 88.9 fL (78.0-98.0); Mean Platelet Volume 7.1 fL (7.4-10.4); Platelet Count 235 thou/uL (130-400); RBC Distribution Width 11.8 % (11.5-14.5); Red Blood Cell (RBC) Count 4.89 mill/uL (4.70-6.10); White Blood Cell (WBC) Count 8.1 thou/uL (4.8-10.8)
[2019-03-27 14:35] LABS: Anion Gap 13 mmol/L (10-20); BUN (Urea Nitrogen) 10 mg/dL (8.4-25.7); Calc. Creatinine Clearance 0 mL/min (70-130); Calcium 9.7 mg/dL (7.8-10.44); Carbon Dioxide 24 mmol/L (23-31); Chloride 109 mmol/L (98-107); Estimated GFR-MDRD 69; Glucose 115 mg/dL (80-115); Sodium 141 mmol/L (136-145)
--- NOTE | 2019-03-28 17:57 | EKG ---
Test Reason : Blood Pressure : / mmHG Vent. Rate : 059 BPM Atrial Rate : 059 BPM P-R Int : 184 ms QRS Dur : 084 ms QT Int : 428 ms P-R-T Axes : 062 020 043 degrees QTc Int : 423 ms Sinus bradycardia Low voltage QRS Cannot rule out Anterior infarct , age undetermined Abnormal ECG When compared with ECG of 26-AUG-2018 23:46, Vent. rate has decreased BY 33 BPM Confirmed by Sofiya AMAYA ([id number]) on 03/28/2019 5:56:46 PM Referred By: ANITA Confirmed By:Sofiya AMAYA
== END 2019-03-27 06:29 | disposition home or self-care (01) ==
LOC: LABBT 06:28
PROVIDERS: ATTEND Orthopaedic Surgery
DX: Z01.818 Encounter for other preprocedural examination (principal); S46.219A Strain of muscle, fascia and tendon of other parts of biceps, unspecified arm, initial encounter
CPT/HCPCS: 80048; 85025; 93005; 93010

== ENCOUNTER 2019-03-28 08:49 | Day surgery (SDC) | payer BC ==
[2019-03-27 12:36] VITALS: BMI 25.7
[2019-03-28] MEDS ORDERED: Midazolam HCl 2 mg/2 ml Vial ONE (10:39)
[2019-03-28] MEDS ORDERED: Fentanyl 100 MCG/2 ML VIAL ONE (10:39)
[2019-03-28] MEDS ORDERED: Midazolam HCl 2 mg/ml Syrup 5 ml UD Cup ONE (10:39)
[2019-03-28] MEDS ORDERED: Glycopyrrolate 0.2 MG/ML 5 ML SYRINGE ONE (10:49)
[2019-03-28] MEDS ORDERED: Dexamethasone 20 MG/5 ML VIAL ONE (10:49)
[2019-03-28] MEDS ORDERED: Rocuronium Bromide 10 MG/ML (10ML VIAL) ONE (10:49)
[2019-03-28] MEDS ORDERED: Ropivacaine 0.2% HCl/PF (40 MG/20 ML VIAL) ONE (10:49)
[2019-03-28] MEDS ORDERED: Ropivacaine 0.5% HCl/PF (150 MG/30 ML VIAL) ONE (10:49)
[2019-03-28] MEDS ORDERED: PROPOFOL 200 MG/20 ML VIAL ONE (10:49)
[2019-03-28] MEDS ORDERED: Ondansetron PF 4 MG/2 ML Vial ONE (10:49)
[2019-03-28] MEDS ORDERED: Zolpidem Tartrate 5 MG TAB PO PRN (11:07)
[2019-03-28] MEDS ORDERED: HYDROcodone/Acetaminophen 10/325 mg Tablet PO PRN ×2 (11:07)
[2019-03-28] MEDS ORDERED: traMADol HCl 50 MG TAB PO PRN ×2 (11:07)
[2019-03-28] MEDS ORDERED: Acetaminophen 325 MG TAB PO PRN (11:07)
[2019-03-28] MEDS ORDERED: Ropivacaine 0.2% 550 ML 550 ML NERVE BLCK SCH (11:07)
[2019-03-28] MEDS ORDERED: Promethazine HCl 25 MG/ML VIAL IM PRN (11:07)
[2019-03-28] MEDS ORDERED: Ondansetron PF 4 MG/2 ML Vial IVP PRN (11:07)
[2019-03-28] MEDS ORDERED: Fentanyl 100 MCG/2 ML VIAL IV PRN (11:08)
[2019-03-28] MEDS ORDERED: Labetalol HCl 100 MG/20 ML VIAL ONE ×2 (13:38→13:46)
[2019-03-28] MEDS ORDERED: hydrALAZINE 20 MG/ML VIAL ONE (14:06)
--- NOTE | 2019-03-31 09:41 | OP ---
DATE OF PROCEDURE: 03/28/2019 PREOPERATIVE DIAGNOSES: Left rotator cuff tear and biceps tendinitis. POSTOPERATIVE DIAGNOSES: Normal biceps tendon, full-thickness rotator cuff tear. ANESTHESIA: General. BLOOD LOSS: Minimal. SPECIMEN: None. DRAIN: None. COMPLICATION: None. DESCRIPTION OF PROCEDURE: The patient was taken to the operating room, where general anesthesia was induced. He was placed in right lateral decubitus position. Left arm was placed in 15 pounds of traction, prepped and draped in usual sterile fashion. Scope was placed in glenohumeral joint. There was no arthritis. There was a rotator cuff tear. Part of the rotator cuff tear was up adjacent to the biceps tendon. I think this was giving a false positive for biceps tendinitis. There was definitely not any type of split seen in the biceps tendon itself. The scope was placed in the subacromial bursa. Full-thickness rotator cuff was freshened with a shaver. I freshened the greater tuberosity with a bur and placed 2 corkscrew suture anchors from [employer] through the footprint of the rotator cuff, which was now down to bleeding bone. Sutures were passed. The rotator cuff tied with a good watertight repair, then reinforced the double row type repair. Anterior and inferior acromioplasty was performed. Shoulder was drained. Portals were closed with nylon suture. Sterile dressings were applied. Job ID: [id number]
== END 2019-03-28 16:00 | disposition home or self-care (01) ==
LOC: SDC 08:49
PROVIDERS: ATTEND Orthopaedic Surgery
PROC: 3E0T3BZ Introduction of Anesthetic Agent into Peripheral Nerves and Plexi, Percutaneous Approach (ICD-10-PCS; principal; 2019-03-28)
PROC: 0LM24ZZ Reattachment of Left Shoulder Tendon, Percutaneous Endoscopic Approach (ICD-10-PCS; principal; 2019-03-28)
DX: M75.122 Complete rotator cuff tear or rupture of left shoulder, not specified as traumatic (principal); I10 Essential (primary) hypertension; K21.9 Gastro-esophageal reflux disease without esophagitis; E78.00 Pure hypercholesterolemia, unspecified; G47.30 Sleep apnea, unspecified; Z79.82 Long term (current) use of aspirin; Z79.899 Other long term (current) drug therapy; Z95.5 Presence of coronary angioplasty implant and graft; Z99.89 Dependence on other enabling machines and devices
CPT/HCPCS: A4306; C1713; J0360; J0690; J1100; J2250; J2405; J2704; J2795; J3010

== ENCOUNTER 2019-03-30 20:02 | Emergency (ER) | payer BC | END 2019-03-30 21:32 | disposition home or self-care (01) | LOC: ERS 20:02 | DX: R11.2 Nausea with vomiting, unspecified (principal); I25.2 Old myocardial infarction; I10 Essential (primary) hypertension; E78.5 Hyperlipidemia, unspecified; K21.9 Gastro-esophageal reflux disease without esophagitis; F17.210 Nicotine dependence, cigarettes, uncomplicated; Z98.890 Other specified postprocedural states; Z79.82 Long term (current) use of aspirin; Z79.02 Long term (current) use of antithrombotics/antiplatelets; Z79.899 Other long term (current) drug therapy | CPT/HCPCS: 99283 ==